=== PATIENT | male | born 1990 | race Caucasian/White ===

== ENCOUNTER 2017-03-04 18:26 | Emergency (ER) | payer MEDICAID ==
[~2017-03-04] VITALS: Ht 175.3 cm; Wt 70.0 kg
[2017-03-04 18:28] VITALS: BP 114/68; PULSE 88; RESP 18; TEMP 97.7; O2SAT 96
[2017-03-04 19:00] VITALS: BP 147/90; PULSE 77; RESP 19; TEMP 98.2; O2SAT 98
--- NOTE | 2017-03-04 19:37 | PD ---
HPI Chief Complaint: Respiratory Symptoms Time Seen by Provider: 19:25 Travel History International Travel<30 days: No Contact w/Intl Traveler<30days: No Traveled to known affect area: No History of Present Illness HPI 26-year-old male smoker with no symptoms. Past medical history presents for evaluation of cough, fevers, congestion. Symptoms started 2 days ago. The cough is primarily dry however he is able to occasionally expectorated a small amount of phlegm. He reports temperatures as high as 101 at home. He has been using DayQuil with minimal symptom relief. He denies sore throat, ear pain , rash, recent travel, nausea or vomiting, abdominal pain, flank pain, dysuria. No sick contacts. No other complaints at this time. PFSH Past Medical History Cardiovascular Problems: Yes (HX OF ENDOCARDITIS) Social History Alcohol Use: No Tobacco Use: Yes Substance Use: No Allergies-Medications (Allergen,Severity, Reaction): Coded Allergies: No Known Allergies (Unverified , 03/04/17) Reported Meds & Prescriptions Reported Meds & Active Scripts Active Tessalon Perles (Benzonatate) 100 Mg Cap 200 Mg PO TID PRN Proair Hfa 8.5 GM Inh (Albuterol Sulfate) 90 Mcg/Act Aer 2 Puff INH Q4-6H PRN 108 mcg/actuation Prednisone 20 Mg Tab 20 Mg PO BID 5 Days Review of Systems Except as stated in HPI: all other systems reviewed are Neg Physical Exam Narrative GENERAL: Well-developed well-nourished male in no acute distress. SKIN: Warm and dry. HEAD: Atraumatic. Normocephalic. EYES: Pupils equal and round. No scleral icterus. No injection or drainage. ENT: No nasal bleeding or discharge. Mucous membranes pink and moist. NECK: Trachea midline. No JVD. CARDIOVASCULAR: Regular rate and rhythm. No murmur appreciated. RESPIRATORY: No accessory muscle use. Faint wheezing bilaterally. No crackles. GASTROINTESTINAL: Abdomen soft, non-tender, nondistended. Hepatic and splenic margins not palpable. MUSCULOSKELETAL: No obvious deformities. No clubbing. No cyanosis. No edema. NEUROLOGICAL: Awake and alert. No obvious cranial nerve deficits. Motor grossly within normal limits. Normal speech. PSYCHIATRIC: Appropriate mood and affect; insight and judgment normal. Data Data Last Documented VS Vital Signs Date Time Temp Pulse Resp B/P (MAP) Pulse Ox O2 Delivery O2 Flow Rate FiO2 03/04/17 19:00 98.2 77 19 147/90 (109) 98 Room Air Orders Orders Influenzae A/B Antigen (03/04/17 19:31) Albuterol-Ipratropium Neb (Duoneb Neb) (03/04/17 19:45) Chest, Single Ap (03/04/17 ) Benzonatate (Tessalon) (03/04/17 19:45) Prednisone (Deltasone) (03/04/17 21:15) Ed Discharge Order (03/04/17 21:12) [facility] Medical Decision Making Medical Screen Exam Complete: Yes Emergency Medical Condition: Yes Medical Record Reviewed: Yes Differential Diagnosis Influenza, reactive airway disease, bronchitis, pneumonia, sinusitis Narrative Course 26-year-old male with 3 days of cough, congestion, low-grade fevers. On examination he has mild wheezing. Plan is for influenza antigen and chest x- ray. He will be given DuoNeb treatments as well as Tessalon. Chest x-ray and influenza antigen tests are normal. Upon reexamination he does feel improved. The patient is being discharged with albuterol inhaler, prednisone and Tessalon. Diagnosis Primary Impression: Bronchitis Additional Instructions: Medication as prescribed. Avoid tobacco products. Stay well hydrated well- nourished. Follow-up with primary care physician as needed and return for any emergent medical conditions. Med/Other Pt SpecificInfo: Prescription(s) given Scripts Benzonatate (Tessalon Perles) 100 Mg Cap 200 MG PO TID Y for COUGH, #30 CAP 0 Refills Prov: Marcus Meneses MD 03/04/17 Albuterol 8.5 GM Inh (Proair Hfa 8.5 GM Inh) 90 Mcg/Act Aer 2 PUFF INH Q4-6H Y for SHORTNESS OF BREATH, #1 INHALER 0 Refills 108 mcg/actuation Prov: Marcus Meneses MD 03/04/17 Prednisone (Prednisone) 20 Mg Tab 20 MG PO BID for 5 Days, #10 TAB 0 Refills Prov: Marcus Meneses MD 03/04/17 Disposition: 01 DISCHARGE HOME Condition: Stable Suresh Maldonado Mar 04, 2017 19:37
[2017-03-04] MEDS ORDERED: BENZONATATE 100 MG CAP PO ONE (19:45)
[2017-03-04] MEDS: RESP: ALBUTEROL 2.5 MG/IPRATROPIUM 0.5 MG NEB (SCH) INH ×2 (20:00→20:01)
--- NOTE | 2017-03-04 20:17 | RADRPT ---
EXAM DATE/TIME: 03/04/2017 19:52 [facility] COMPARISON: No previous studies available for comparison. INDICATIONS : Cough. Short of breath. MEDICAL HISTORY : Smoker. Endocarditis. SURGICAL HISTORY : None. ENCOUNTER: Initial ACUITY: 3 days PAIN SCORE: 0/10 LOCATION: Bilateral chest FINDINGS: A single view of the chest demonstrates the lungs to be symmetrically aerated without evidence of mas s, infiltrate or effusion. The cardiomediastinal contours are unremarkable. Osseous structures are intact. CONCLUSION: No acute disease. Yusuf Carvajal MD on March 04, 2017 at 20:15 Board Certified Radiologist. This report was verified electronically.
[2017-03-04] MEDS ORDERED: ALBUAER3 INH (21:08)
[2017-03-04] MEDS ORDERED: PRED20 PO (21:08)
[2017-03-04] MEDS ORDERED: BENZ100 PO (21:08)
[2017-03-04] MEDS ORDERED: predniSONE 20 MG TAB PO ONE (21:15)
== END 2017-03-04 21:39 | disposition home or self-care (01) ==
LOC: NEPD 18:26
DX: J40 Bronchitis, not specified as acute or chronic (principal); F17.210 Nicotine dependence, cigarettes, uncomplicated
CPT/HCPCS: 71010; 87804; 94640; 94664; 99284; J7512